=== PATIENT | female | born 1990 | race Caucasian/White ===

== ENCOUNTER 2017-06-14 20:43 | Emergency (ER) | payer MEDICARE, MEDICAID ==
[2017-06-14] MEDS ORDERED: Famotidine IV* 10 MG/ML 2 ML (20 mg) IV SLOW PU ONE (21:47)
[2017-06-14] MEDS ORDERED: methylPREDNISolone 125 MG* 2 ML VIAL IV ONE (21:47)
[2017-06-14 23:50] VITALS: BP 103/67
--- NOTE | 2017-06-15 11:37 | ED ---
Kati Abrams Edward, scribed for Trung Greer MD on 06/14/17 at 2138 . Allergic Reaction/Systemic - HPI Summary HPI Summary: 26 y/o female presents to ED c/o sudden onset, constant lower lip edema at around 19:40 tonight. The lower lip is still swollen in the ED. Pt was given Benadryl minutes after that, which slightly reduced the swelling. No pruritus, no trouble swelling. Denies other symptoms in the ED course. - History of Current Complaint Chief Complaint: EDAllergicReaction Time Seen by Provider: 06/14/17 21:32 Hx Obtained From: Patient Onset/Duration: Sudden Onset, Started hours ago Timing: Constant Pain Intensity: 0 Character: Swelling - Lower lip Associated Signs And Symptoms: Positive: Negative - Allergies/Home Medications Allergies/Adverse Reactions: Allergies Allergy/AdvReac Type Severity Reaction Status Date / Time No Known Allergies Allergy Verified 02/09/14 00:53 PMH/Surg Hx/FS Hx/Imm Hx Previously Healthy: No - Positive: [place] Syndrome Neurological History: Reports: Hx Seizures Infectious Disease History: No Infectious Disease History: Denies: Traveled Outside the [place] in Last 30 Days - Family History Known Family History: Negative: Cardiac Disease, Hypertension, Diabetes - Social History Occupation: Disabled Lives: With Family Alcohol Use: None Hx Substance Use: No Substance Use Type: Reports: None Hx Tobacco Use: No Smoking Status (MU): Never Smoked Tobacco Review of Systems Constitutional: Negative Eyes: Negative ENT: Other - Lower lip edema Cardiovascular: Negative Respiratory: Negative Gastrointestinal: Negative Genitourinary: Negative Musculoskeletal: Negative Skin: Negative Neurological: Negative Psychological: Normal All Other Systems Reviewed And Are Negative: Yes Physical Exam Triage Information Reviewed: Yes Vital Signs On Initial Exam: Initial Vitals Temp Pulse Resp BP Pulse Ox 98.3 F 87 15 117/69 99 06/14/17 20:50 06/14/17 20:50 06/14/17 20:50 06/14/17 20:50 06/14/17 20:50 Vital Signs Reviewed: Yes Appearance: Positive: Well-Appearing, No Pain Distress Skin: Positive: Warm, Skin Color Reflects Adequate Perfusion, Dry Head/Face: Positive: Normal Head/Face Inspection Eyes: Positive: Normal ENT: Positive: Other - Swollen lower lip Neck: Positive: Supple, Nontender Respiratory/Lung Sounds: Positive: Clear to Auscultation, Breath Sounds Present Cardiovascular: Positive: RRR Abdomen Description: Positive: Nontender, Soft Bowel Sounds: Positive: Present Musculoskeletal: Positive: Normal Neurological: Positive: Normal Psychiatric: Positive: Normal, Affect/Mood Appropriate Diagnostics - Vital Signs Vital Signs Temp Pulse Resp BP Pulse Ox 06/14/17 20:50 98.3 F 87 15 117/69 99 - Laboratory Lab Statement: Any lab studies that have been ordered have been reviewed, and results considered in the medical decision making process. Allergic Reaction Course/Dx - Course Course Of Treatment: Bela had a sudden swelling of her lower lip without any other signs or symptoms. She was given PO benadryl immediately and is slightly improved on arrival here. She has been ordered additional medications and observation and I expect will be D/C'd if she continues to improved. - Diagnoses Provider Diagnoses: Allergic reaction Discharge - Discharge Plan Condition: Stable Disposition: HOME Patient Education Materials: General Allergic Reaction (ED) Referrals: Sintia Bob NP [Primary Care Provider] - 3 Days (PLEASE F/U IN 2-3 DAYS) Additional Instructions: Continue with Benadryl The documentation as recorded by the Kati edwards Edward accurately reflects the service I personally performed and the decisions made by me, Trung Greer MD.
== END 2017-06-14 23:12 | disposition home or self-care (01) ==
LOC: ED 20:43
DX: T78.40XA Allergy, unspecified, initial encounter (principal); K13.0 Diseases of lips; X58.XXXA Exposure to other specified factors, initial encounter; Q93.4 Deletion of short arm of chromosome 5; R56.9 Unspecified convulsions
CPT/HCPCS: 96374; 96375; 99282; J2930

== ENCOUNTER 2017-07-27 13:50 | Emergency (ER) | payer MEDICARE, MEDICAID ==
[2017-07-27 14:43] VITALS: BP 118/73
--- NOTE | 2017-07-27 15:44 | UC ---
Respiratory Complaint HPI - HPI Summary HPI Summary: Patient presents to the with 5 days worsening cough, congestion, post nasal drip and nasal drainage. Sputum production is green and thick. She denies chest pain or SOB. Denies hx of sinus infections and denies sinus pressure or pain. She is otherwise healthy. 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 She has been taking cepacol without relief of cough. Denies sore throat. Denies fevers, sweats or chills. - History of Current Complaint Hx Obtained From: Patient Hx Last Menstrual Period: MIDDLE JUL ?: No Onset/Duration: Sudden Onset Timing: Constant Severity Initially: Moderate Severity Currently: Moderate Pain Intensity: 4 Pain Scale Used: 0-10 Numeric Character: Cough: Productive Aggravating Factors: Nothing Alleviating Factors: Nothing Associated Signs And Symptoms: Positive: URI, Nasal Congestion, Sinus Discomfort - Risk Factors Pulmonary Embolism Risk Factors: Negative Cardiac Risk Factors: Negative Pseudomonas Risk Factors: Negative Tuberculosis Risk Factors: Negative <Tamiko Jung - Last Filed: 07/27/17 15:38> <Nori Pinedo - Last Filed: 07/28/17 07:34> - History of Current Complaint Chief Complaint: UCRespiratory Stated Complaint: URI Time Seen by Provider: 07/27/17 15:09 - Allergies/Home Medications Allergies/Adverse Reactions: Allergies Allergy/AdvReac Type Severity Reaction Status Date / Time No Known Allergies Allergy Verified 07/27/17 14:43 Home Medications: Home Medications Multiple Vitamins W/ Minerals [Multivitamin Adults] 1 tab PO DAILY 07/27/17 [ History Confirmed 07/27/17] Oxybutynin Chloride (Bulk) [Oxybutinin Chloride] 1 pow XX BID 07/27/17 [History Confirmed 07/27/17] lamoTRIgine TAB(*) [LaMICtal TAB(*)] 150 mg PO QAM 07/27/17 [History Confirmed 07/27/17] lamoTRIgine TAB(*) [LaMICtal TAB(*)] 200 mg PO BEDTIME 07/27/17 [History Confirmed 07/27/17] PMH/Surg Hx/FS Hx/Imm Hx Previously Healthy: Yes - Surgical History Surgical History: Yes - Family History Known Family History: Negative: Cardiac Disease, Hypertension, Diabetes - Social History Occupation: Employed Part-time Lives: Residential Alcohol Use: None Substance Use Type: None Smoking Status (MU): Never Smoked Tobacco <Tamiko Jung Frank - Last Filed: 07/27/17 15:38> Review of Systems Constitutional: Negative Skin: Negative ENT: Nasal Discharge, Sinus Congestion, Sinus Pain/Tenderness Respiratory: Cough Cardiovascular: Negative Motor: Negative Neurovascular: Negative Neurological: Negative Psychological: Negative Is Patient Immunocompromised?: No All Other Systems Reviewed And Are Negative: Yes <FabianaTamiko mao Frank - Last Filed: 07/27/17 15:38> Physical Exam Triage Information Reviewed: Yes Appearance: Well-Appearing, No Pain Distress, Well-Nourished Vital Signs: Initial Vital Signs Temp 98.9 F 07/27/17 14:38 Pulse 99 07/27/17 14:38 Resp 18 07/27/17 14:38 BP 118/73 07/27/17 14:38 Pulse Ox 100 07/27/17 14:38 Vital Signs Reviewed: Yes Eye Exam: Normal Eyes: Positive: Conjunctiva Clear ENT: Positive: Pharynx normal Neck exam: Normal Neck: Positive: Supple, No Lymphadenopathy Respiratory Exam: Normal Respiratory: Positive: Chest non-tender, Lungs clear Cardiovascular Exam: Normal Cardiovascular: Positive: RRR Musculoskeletal Exam: Normal Musculoskeletal: Positive: Strength Intact Neurological Exam: Normal Neurological: Positive: Alert Psychological: Positive: Normal Response To Family <Tamiko Jung - Last Filed: 07/27/17 15:38> Vital Signs: Initial Vital Signs Temp 98.9 F 07/27/17 14:38 Pulse 99 07/27/17 14:38 Resp 18 07/27/17 14:38 BP 118/73 07/27/17 14:38 Pulse Ox 100 07/27/17 14:38 <Nori Pinedo - Last Filed: 07/28/17 07:34> UC Diagnostic Evaluation - Laboratory O2 Sat by Pulse Oximetry: 100 <Tamiko Jung Frank - Last Filed: 07/27/17 15:38> Respiratory Course/Dx - Course Course Of Treatment: Patient is evaluated for cough and congestion x 5 days. Lungs are CTA. Coughing up sputum which is green. Sinus pressure. Azithromycin and tessalon given to patient. - Differential Dx/Diagnosis Differential Diagnosis/HQI/PQRI: Bronchitis, Influenza, Sinusitis Provider Diagnoses: Bronchitis <Tamiko Jung - Last Filed: 07/27/17 15:38> Discharge <Tamiko Jung - Last Filed: 07/27/17 15:38> <Nori Pinedo - Last Filed: 07/28/17 07:34> - Discharge Plan Condition: Stable Disposition: HOME Prescriptions: Azithromyxin ERICK (NF) [Z-Erick (Zithromax) 250 mg tabs #6] 2 tab PO .TODAY, THEN 1 DAILY #6 tab Benzonatate CAP* [Tessalon CAP*] 100 mg PO TID #21 cap Patient Education Materials: Acute Bronchitis (ED) Referrals: Sintia Bob NP [Primary Care Provider] - Additional Instructions: Humidifier in the home will help Drink plenty of fluids Do not smoke Take the cough medication only as needed Azithromycin - 2 today and 1 daily for a total of 5 days. If you develop worsening symptoms, return to the UC
== END 2017-07-27 15:39 | disposition home or self-care (01) ==
LOC: UCEAST 13:50
DX: J40 Bronchitis, not specified as acute or chronic (principal)
CPT/HCPCS: 99212; G0463